=== PATIENT | female | born 1995 | race Caucasian/White ===

== ENCOUNTER 2019-04-18 20:53 | Emergency (ER) | payer OTHER ==
[~2019-04-18] VITALS: Ht 167.6 cm; Wt 68.5 kg
[2019-04-18 20:57] VITALS: BP 131/55; Ht 167.6 cm; Wt 68.5 kg
[2019-04-20 05:08] LABS: RAPID PLASMA REAGIN Non Reactive (Non Reactive)
== END 2019-04-19 00:59 | disposition home or self-care (01) ==
LOC: ED 20:53
PROVIDERS: Emergency Medicine
DX: N89.8 Other specified noninflammatory disorders of vagina (principal); J45.909 Unspecified asthma, uncomplicated; Z98.890 Other specified postprocedural states; Z88.5 Allergy status to narcotic agent
CPT/HCPCS: 87491; 87591

== ENCOUNTER 2019-04-24 18:01 | Emergency (ER) | payer OTHER ==
[~2019-04-24] VITALS: Ht 167.6 cm; Wt 68.0 kg
[2019-04-24 18:26] VITALS: BP 138/68; Ht 167.6 cm; Wt 68.0 kg
== END 2019-04-24 20:54 | disposition home or self-care (01) ==
LOC: ED 18:01
DX: N76.0 Acute vaginitis (principal); J45.909 Unspecified asthma, uncomplicated

== ENCOUNTER 2019-05-16 09:05 | Emergency (ER) | payer OTHER ==
[~2019-05-16] VITALS: Ht 167.6 cm; Wt 66.7 kg
[2019-05-16 10:35] VITALS: BP 105/54
== END 2019-05-16 10:35 | disposition home or self-care (01) ==
LOC: ED 09:05
DX: F41.9 Anxiety disorder, unspecified (principal); T43.225A Adverse effect of selective serotonin reuptake inhibitors, initial encounter; J45.909 Unspecified asthma, uncomplicated; Y92.89 Other specified places as the place of occurrence of the external cause
CPT/HCPCS: J2060

== ENCOUNTER 2019-05-26 09:33 | Emergency (ER) | payer OTHER ==
[~2019-05-26] VITALS: Ht 162.6 cm; Wt 66.7 kg
[2019-05-26 09:38] VITALS: Ht 162.6 cm; Wt 66.7 kg
[2019-05-26 10:43] LABS: CALCIUM 8.7 mg/dL (8.5-10.1); CARBON DIOXIDE 27.2 mmol/L (21-32); CHLORIDE SERUM 105 mmol/L (98-107); CREATININE SERUM 0.8 mg/dL (0.6-1.0); GFR1 > 60 mL/min; GLUCOSE SERUM 83 mg/dL (74-106); POTASSIUM SERUM 4.1 mmol/L (3.5-5.1); SODIUM SERUM 138 mmol/L (136-145)
[2019-05-26 10:48] LABS: ALBUMIN 3.7 g/dL (3.4-5.0); ALKALINE PHOSPHATASE 50 U/L (46-116); ALT/SGPT 20 U/L (14-59); AMYLASE 49 U/L (25-115); AST/SGOT 15 U/L (15-37); BILIRUBIN TOTAL 0.5 mg/dL (0.20-1.00); LIPASE 122 IU/L (73-393); TOTAL PROTEIN, SERUM 7.2 g/dL (6.4-8.2)
[2019-05-26 11:19] LABS: BASOPHIL % 0.4 % (0-2); PLATELET COUNT 235 x10^3mcL (130-400); RED CELL DISTRIBUTION WIDTH 13.7 % (11.5-14.5)
[2019-05-26 12:33] VITALS: BP 108/65
== END 2019-05-26 12:33 | disposition home or self-care (01) ==
LOC: ED 09:33
PROVIDERS: Specialist
DX: R10.33 Periumbilical pain (principal); R19.7 Diarrhea, unspecified; J45.909 Unspecified asthma, uncomplicated
CPT/HCPCS: 36415

== ENCOUNTER 2019-05-29 11:28 | Emergency (ER) | payer OTHER ==
[~2019-05-29] VITALS: Ht 167.6 cm; Wt 66.2 kg
[2019-05-29 11:34] VITALS: Ht 167.6 cm; Wt 66.2 kg
[2019-05-29 14:55] LABS: BASOPHIL % 0.3 % (0-2); PLATELET COUNT 275 x10^3mcL (130-400); RED CELL DISTRIBUTION WIDTH 13.6 % (11.5-14.5)
[2019-05-29 15:12] LABS: UA SPECIFIC GRAVITY 1.025 (1.005-1.035); microscopic required? YES; urine erythrocyte TRACE (NEGATIVE)
[2019-05-29 15:25] LABS: CALCIUM 9.2 mg/dL (8.5-10.1); CARBON DIOXIDE 23.9 mmol/L (21-32); CHLORIDE SERUM 106 mmol/L (98-107); CREATININE SERUM 0.7 mg/dL (0.6-1.0); GFR1 > 60 mL/min; GLUCOSE SERUM 91 mg/dL (74-106); POTASSIUM SERUM 4.5 mmol/L (3.5-5.1); SODIUM SERUM 140 mmol/L (136-145)
[2019-05-29 15:30] LABS: ALBUMIN 3.9 g/dL (3.4-5.0); ALKALINE PHOSPHATASE 51 U/L (46-116); ALT/SGPT 18 U/L (14-59); AST/SGOT 17 U/L (15-37); BILIRUBIN TOTAL 0.5 mg/dL (0.20-1.00); MAGNESIUM 1.9 mg/dL (1.8-2.4); TOTAL PROTEIN, SERUM 7.6 g/dL (6.4-8.2)
[2019-05-29 16:28] VITALS: BP 101/47
== END 2019-05-29 16:28 | disposition home or self-care (01) ==
LOC: ED 11:28
PROVIDERS: Emergency Medicine
DX: O23.41 Unspecified infection of urinary tract in pregnancy, first trimester (principal); O99.511 Diseases of the respiratory system complicating pregnancy, first trimester; R42 Dizziness and giddiness; Z3A.01 Less than 8 weeks gestation of pregnancy
CPT/HCPCS: 82962; 87804; J7030

== ENCOUNTER 2019-06-26 10:52 | Emergency (ER) | payer OTHER ==
[~2019-06-26] VITALS: Ht 165.1 cm; Wt 69.9 kg
[2019-06-26 10:57] VITALS: BP 106/76; Ht 165.1 cm; Wt 69.9 kg
== END 2019-06-26 11:50 | disposition home or self-care (01) ==
LOC: ED 10:52
DX: O23.41 Unspecified infection of urinary tract in pregnancy, first trimester (principal); N89.8 Other specified noninflammatory disorders of vagina; Z3A.08 8 weeks gestation of pregnancy